=== PATIENT | male | born 1980 | race Asian ===

== ENCOUNTER 2024-01-27 06:13 | Day surgery (SDC) | payer OTHER, SELFPAY ==
[2024-01-12 09:48] VITALS: BMI 19.9
[2024-01-27] VITALS (12 sets, daily range): BP systolic 112–129; BP diastolic 81–94; BMI 19.9
--- NOTE | 2024-01-27 07:25 | HP.FOC2 ---
Focused History & Physical
Chief Complaint
HPI:
Chief Complaint: Right inguinal hernia
HPI / Indication for Planned Procedure: Patient is a 43-year-old male recently seen in outpatient surgical evaluation secondary to history of visible swelling and occasional discomfort in the right inguinal region. CT imaging identified a
fat-containing right direct inguinal hernia. Left inguinal region normal. Physical examination at office follow-up confirmed presence of reducible right inguinal hernia. Patient presents today for scheduled operative correction.
Relevant Past Medical History: Negative
Relevant Social History: Negative and Tobacco Use (Former smoker)
Relevant Family History: Negative
Relevant Past Surgical History: Negative
Review of Systems
Review of Pertinent Systems: All Systems Negative
Medication
See Medication form for detailed medications: Yes
Medication List (including Herbals & OTC):
ibuprofen 200 mg tablet (Advil) 200 - 400 mg PO Q6H PRN migraine 01/24/24
Medications Reviewed: Yes
Allergies and Reactions
Patient has Allergies: No
Noted Allergies and Reactions:
Allergy/AdvReac Type Severity Reaction Status Date / Time
No Known Allergies Allergy Unverified 03/07/23 23:27
Pertinent Physical Exam
All Other Systems: Negative
Head/Neck: Normal
Lungs: Normal
Heart: Normal
Abdomen: Other (Reducible right inguinal hernia)
Extremities: Normal
Neurological: Normal
Diagnosis / Assessment
43-year-old male presenting for scheduled operative correction right inguinal hernia
Plan / Procedure
Laparoscopic repair right inguinal hernia with mesh
Anesthesia/Sedation to be done by Anesthesia Provider: Yes
[2024-01-27] MEDS: TYLENOL 1000 MG PO (07:41)
[2024-01-27] MEDS: NORMOSOL-R 1000 IV (07:42)
--- NOTE | 2024-01-27 08:55 | W.SUR.PREOP ---
Pre-Operative Surgical Note
-
I have examined this patient prior to the performance of the scheduled procedure.
The patient's condition is unchanged from the time of the current History and
Physical and the patient is able to undergo the scheduled procedure.
--- NOTE | 2024-01-27 09:59 | W.IMMPOSTOP ---
Addendum entered and electronically signed by Joseluis Irvin MD 01/27/24 10:09:
The assistance of Corinne Pope PA-c was required due to the complexity of the procedure. During the procedure Corinne Pope PA-c assisted with retraction,control of the laparoscopic camera, and closure of the incision sites.
#[id number]
Original Note:
Surgical Immed Post Op Note
-
Primary Surgeon: Albaro
Assisting Surgeon: Corinne Pope PA-C
Pre-op Diagnosis: RIH
Post-op Diagnosis: RIH - direct
Procedure Performed: Lap TEP RIH repair with mesh
Anesthesia Type: GETA + 0.25% Marcaine
Specimen / Cultures: none
Estimated Blood Loss: 6mL
Complications: none immediate
Operative Findings: RIH - direct. Normal indirect and femoral spaces. No peritoneal entry with dissection. 3D max large mid weight mesh repair secured to Jack's ligament with CAPSure tacks x 2
== END 2024-01-27 12:30 | disposition home or self-care (01) ==
LOC: SDS 06:13
PROVIDERS: ATTENDING PHYSICIAN Surgery; FAMILY PHYSICIAN Family Medicine; OTHER PHYSICIAN Internal Medicine Cardiovascular Disease
DX: K40.90 Unilateral inguinal hernia, without obstruction or gangrene, not specified as recurrent (principal)
CPT/HCPCS: 49650; 36415; 93005; C1781

== ENCOUNTER → 2025-07-12 13:29 | Outpatient (REF) | payer OTHER, SELFPAY | LOC: RAD 13:29 | PROVIDERS: ATTENDING PHYSICIAN Family Medicine | DX: E04.9 Nontoxic goiter, unspecified (principal) | CPT/HCPCS: 76536 ==